=== PATIENT | female | born 1955 | race Caucasian/White ===

== ENCOUNTER 2022-09-11 13:32 | Outpatient (CLI) | payer OTHER | END 2022-09-11 13:46 | disposition home or self-care (01) | LOC: MRI 13:32 | PROVIDERS: ATTEND Psychiatry & Neurology Clinical Neurophysiology | DX: I63.30 Cerebral infarction due to thrombosis of unspecified cerebral artery (principal); E04.8 Other specified nontoxic goiter | CPT/HCPCS: 70551 ==

== ENCOUNTER 2022-12-13 11:36 | Outpatient (CLI) | payer OTHER | END 2022-12-13 11:39 | disposition home or self-care (01) | LOC: SONOGRAMA 11:36 | PROVIDERS: ATTEND Pathology Anatomic Pathology & Clinical Pathology | DX: D34 Benign neoplasm of thyroid gland (principal); E04.9 Nontoxic goiter, unspecified ==